=== PATIENT | female | born 1955 | race Two or more races ===

== ENCOUNTER 2020-04-05 07:10 | Outpatient (CLI) | payer OTHER | END 2020-04-05 07:24 | disposition home or self-care (01) | LOC: NUCLEAR 07:10 | PROVIDERS: ATTEND Internal Medicine Cardiovascular Disease | DX: I25.10 Atherosclerotic heart disease of native coronary artery without angina pectoris (principal); I50.9 Heart failure, unspecified; I25.89 Other forms of chronic ischemic heart disease; R94.31 Abnormal electrocardiogram [ECG] [EKG] | CPT/HCPCS: 78452; 93017; A9500; J0153 ==

== ENCOUNTER 2022-05-06 01:01 | Inpatient (IN) | payer OTHER ==
[~2022-05-06] VITALS: Ht 167.6 cm; Wt 88.0 kg
[2022-05-06] MEDS ORDERED: HYDROCHLOROTHIA25 MG PO (01:14)
[2022-05-06] MEDS ORDERED: SYNTHROID137 MCG PO (01:15)
[2022-05-06] MEDS ORDERED: SYNTHROID150 MCG PO (01:15)
[2022-05-06] MEDS ORDERED: CARVEDILOL ER40 MG PO (01:15)
[2022-05-06] MEDS ORDERED: CRESTOR20 MG PO (01:15)
[2022-05-06] MEDS ORDERED: CARDURA XL8 MG PO (01:15)
[2022-05-06] MEDS ORDERED: IRBESARTAN150 MG PO (01:16)
[2022-05-06] MEDS ORDERED: CHILDREN'S ASPI81 MG PO (01:16)
[2022-05-06] MEDS ORDERED: NORVASC5 MG PO (01:16)
[2022-05-25] MEDS ORDERED: LIPITOR40 MG PO (14:34)
[2022-05-25] MEDS ORDERED: SPIRONOLACTONE25 MG PO (14:34)
[2022-05-25] MEDS ORDERED: CARdura 2MG TABLET PO (14:34)
[2022-05-25] MEDS ORDERED: ISOSORBIDE MONO30 MG PO (14:34)
[2022-05-25] MEDS ORDERED: CARVEDILOL25 MG PO (14:34)
[2022-05-25] MEDS ORDERED: ST. JOSEPH ASPI81 M2 PO (14:34)
[2022-05-25] MEDS ORDERED: BRILINTA90 MG PO (14:34)
[2022-05-25] MEDS ORDERED: AMLODIPINE BESY10 MG PO (14:34)
[2022-05-25] MEDS ORDERED: AVAPRO150 MG PO (14:34)
[2022-05-25] MEDS ORDERED: HYDRALAZINE HCL50 MG PO (14:34)
== END 2022-05-25 17:27 | disposition home or self-care (01) | DRG 177 ==
LOC: ER 01:01 → SEC-K 14:09 → MEDJ 14:09 → SEC-K 14:31 → O/R 05-07 09:44 → SEC-K 05-07 09:45 → MEDJ 05-07 11:05
PROVIDERS: ADMIT Internal Medicine; ATTEND Internal Medicine
PROC: 8E0ZXY6 Isolation (ICD-10-PCS; 2022-05-06)
PROC: 4A12X45 Monitoring of Cardiac Electrical Activity, Ambulatory, External Approach (ICD-10-PCS; 2022-05-06)
PROC: B24BYZZ Ultrasonography of Heart with Aorta using Other Contrast (ICD-10-PCS; 2022-05-06)
PROC: XW033E5 Introduction of Remdesivir Anti-infective into Peripheral Vein, Percutaneous Approach, New Technology Group 5 (ICD-10-PCS; principal; 2022-05-07)
PROC: B24BYZZ Ultrasonography of Heart with Aorta using Other Contrast (ICD-10-PCS; 2022-05-18)
PROC: 5A2204Z Restoration of Cardiac Rhythm, Single (ICD-10-PCS; 2022-05-24)
DX: U07.1 COVID-19 (principal); I21.4 Non-ST elevation (NSTEMI) myocardial infarction; I24.9 Acute ischemic heart disease, unspecified; I43 Cardiomyopathy in diseases classified elsewhere; N39.0 Urinary tract infection, site not specified; I50.20 Unspecified systolic (congestive) heart failure; I11.0 Hypertensive heart disease with heart failure; I25.10 Atherosclerotic heart disease of native coronary artery without angina pectoris; B96.20 Unspecified Escherichia coli [E. coli] as the cause of diseases classified elsewhere; E11.65 Type 2 diabetes mellitus with hyperglycemia; E78.5 Hyperlipidemia, unspecified; E03.9 Hypothyroidism, unspecified; E11.319 Type 2 diabetes mellitus with unspecified diabetic retinopathy without macular edema; E11.40 Type 2 diabetes mellitus with diabetic neuropathy, unspecified; Z79.4 Long term (current) use of insulin

== ENCOUNTER 2022-06-08 18:04 | Emergency (ER) | payer OTHER ==
[~2022-06-08] VITALS: Ht 167.6 cm; Wt 86.2 kg
[~2022-06-08 18:04] MED LIST: AMLODIPINE BESY10 MG PO; AVAPRO150 MG PO; BRILINTA90 MG PO; CARDURA XL8 MG PO; CARVEDILOL ER40 MG PO; CARVEDILOL25 MG PO; CARdura 2MG TABLET PO; CHILDREN'S ASPI81 MG PO; CRESTOR20 MG PO; HYDRALAZINE HCL50 MG PO; HYDROCHLOROTHIA25 MG PO; IRBESARTAN150 MG PO; ISOSORBIDE MONO30 MG PO; LIPITOR40 MG PO; NORVASC5 MG PO; SPIRONOLACTONE25 MG PO; ST. JOSEPH ASPI81 M2 PO; SYNTHROID137 MCG PO; SYNTHROID150 MCG PO
== END 2022-06-08 23:53 | disposition home or self-care (01) ==
LOC: ER 18:04
DX: R42 Dizziness and giddiness (principal)

== ENCOUNTER 2022-08-10 09:28 | Outpatient (CLI) | payer OTHER | END 2022-08-10 09:30 | disposition home or self-care (01) | LOC: NUCLEAR 09:28 | PROVIDERS: ATTEND Internal Medicine | DX: I50.20 Unspecified systolic (congestive) heart failure (principal); I10 Essential (primary) hypertension | CPT/HCPCS: 78472; A9560 ==